=== PATIENT | male | born 1960 | race Caucasian/White ===

== ENCOUNTER → 2022-08-13 11:15 | Outpatient (BNVA) | payer SELFPAY | PROVIDERS: PCP Family Medicine Adult Medicine; Visit Provider Family Medicine Adult Medicine | DX: R42 Dizziness and giddiness (principal); R06.02 Shortness of breath; J98.4 Other disorders of lung | CPT/HCPCS: 80053; 83036; 84443; 85025 ==

== ENCOUNTER 2022-08-19 10:41 | Outpatient (CLI) | payer SELFPAY ==
--- NOTE | 2022-08-19 10:55 | XR_ITS ---
WS: [id number] XR chest 2V* [id number] REASON FOR EXAM: shortness of breath FINDINGS: Moderate tortuosity and ectasia of the thoracic aorta. Normal heart size. Calcified granulomatous disease bilaterally. No acute pulmonary parenchymal or pleural abnormality. Increased lucency in the right lung apex and possibly within the left lung apex. Most likely bullous lung disease. Moderately severe degenerative spondylosis in the mid and lower thoracic spine. XR/XR chest 2V* [id number] IMPRESSION: No acute chest abnormality.
== END 2022-08-19 10:42 | disposition home or self-care (01) ==
LOC: RAD 10:46
PROVIDERS: PCP Family Medicine Adult Medicine; Visit Provider Family Medicine Adult Medicine
DX: J98.4 Other disorders of lung (principal); R06.02 Shortness of breath
CPT/HCPCS: 71046